=== PATIENT | female | born 1980 | race African-American/Black ===

== ENCOUNTER 2017-10-16 19:46 | Inpatient (IN) | payer MEDICARE, MEDICAID ==
[2017-10-16 20:56] LABS: #Basophils 0.1 thou/uL (0.0-0.2); #Eosinphils 0.1 thou/uL (0.0-0.7); #Lymphocytes 3.5 thou/uL (1.20-3.40); #Monocytes 1.1 thou/uL (0.11-0.59); #Neutrophils 7.5 thou/uL (1.40-6.50); %Basophils 0.9 % (0.0-1.0); %Lymphocytes 28.5 % (21.0-51.0); %Monocytes 9.1 % (0.0-10.0); %Neutrophils 60.6 % (42.0-75.0); Hemoglobin 13.9 g/dL (12.0-16.0); Mean Corpuscular HGB CONC 34.7 g/dL (32.0-36.0); Mean Corpuscular Hemoglobin 34.9 pg (27.0-31.0); Platelet Count 249 thou/uL (130-400); RBC Distribution Width 14.4 % (11.5-14.5); White Blood Cell (WBC) Count 12.3 thou/uL (4.8-10.8)
[2017-10-16 21:14] LABS: ALT (SGPT) 13 U/L (8-55); AST (SGOT) 15 U/L (5-34); Albumin 3.7 g/dL (3.5-5.0); Alkaline Phosphatase 110 U/L (40-150); Anion Gap 14 mmol/L (10-20); BUN (Urea Nitrogen) 15 mg/dL (7.0-18.7); Bilirubin, Total 0.3 mg/dL (0.2-1.2); Calc. Creatinine Clearance 0 mL/min (70-130); Calcium 9.7 mg/dL (7.8-10.44); Carbon Dioxide 23 mmol/L (22-29); Chloride 102 mmol/L (98-107); Estimated GFR-MDRD 89; Globulin 4.7 g/dL (2.4-3.5); Glucose 481 mg/dL (70-105); Protein, Total 8.4 g/dL (6.0-8.3); Sodium 135 mmol/L (136-145)
[2017-10-16 21:18] LABS: CKMB 0.2 ng/mL (0-6.6); Troponin I Less than 0.010 ng/mL (< 0.028)
[2017-10-16 21:36] LABS: Base Excess-Venous -0.5 mmol/L (0 (+/- 2.5)); Bicarbonate (HCO3v) 25.3 mmol/L (1.0-85.0); CO2 Tension (PvCO2) 44.4 mmHg (41.0-51.0); Calcium, Ionized 1.26 mmol/L (1.12-1.32); Hemoglobin - Calc 14.4 g/dL (12.0-18.0); O2 Tension (PvO2) 43.7 mmHg (35.0-45.0); Potassium 4.7 mmol/L (3.4-4.7); T. Carbon Dioxide 26.6 mmol/L (1.0-85.0); pH (Venous) 7.363 (7.35-7.45); vO2 Saturation-calc 77.3 % (94-98)
--- NOTE | 2017-10-16 21:52 | RAD ---
CHEST ONE VIEW: HISTORY: Congestion. Hyperglycemia. COMPARISON: 11/02/2016 FINDINGS: Diminished lung volumes due to poor inspiratory effort. No consolidation or masses. No pneumothorax or osseous abnormalities. Normal cardiac silhouette. IMPRESSION: No acute cardiopulmonary process. Diminished lung volumes due to poor inspiratory effort. POS: PPP
[2017-10-16 22:00] LABS: Bilirubin Negative (Negative); Blood, Urine Negative (Negative); Clarity CLEAR (Clear); Glucose, Urine (Dipstick) 500 mg/dL (Negative); Leukocyte Negative (Negative); Nitrite Negative (Negative); Protein, Urine (Dipstick) Negative (Neg-Trace)
[2017-10-16 22:02] LABS: Specific Gravity, Urine 1.044 (1.002-1.036)
[2017-10-16 23:58] LABS: Pregnancy Test - Urine (BHCG) Negative (Negative); Pregu Control Background? CLEAR/WHITE (CLR/WHITE); Pregu Control Bar Appear? YES (CONTROL BAR); Specific Gravity 1.045 (1.002-1.036)
[2017-10-17] MEDS ORDERED: Ondansetron ODT 4 MG TAB SL PRN (03:28)
[2017-10-17] MEDS ORDERED: Acetaminophen 325 MG TAB PO PRN ×2 (03:28→03:54)
[2017-10-17] MEDS ORDERED: Ondansetron HCl/PF 4 MG/2 ML Vial IVP PRN ×2 (03:28→03:54)
[2017-10-17] MEDS ORDERED: Sodium Chloride 0.9% 1,000 ML IV SCH (03:28)
[2017-10-17] MEDS ORDERED: Dextrose 50% Abboject 50 ML SYRINGE SLOW IVP PRN (03:54)
[2017-10-17] MEDS ORDERED: Dextrose 5% in Water 1,000 ML IV PRN (03:54)
[2017-10-17] MEDS ORDERED: Mag-Al 1200 mg/1200 mg/30 ML UDCUP PO PRN (03:54)
[2017-10-17] MEDS ORDERED: HumaLOG 300 UNITS/3 ML VIAL SC PRN (03:54)
[2017-10-17] MEDS ORDERED: Acetaminophen 650 MG/20.3 ML UDCUP PER TUBE PRN (04:20)
[2017-10-17] MEDS ORDERED: Mag-Al 1200 mg/1200 mg/30 ML UDCUP PER TUBE PRN (04:30)
[2017-10-17] MEDS: Sodium Chloride 0.9% 1,000 ML IV SCH ×2 (04:32→15:56)
[2017-10-17 05:42] LABS: Hemoglobin A1c 7.7 % (4.0-6.0)
[2017-10-17] MEDS: Albuterol Sulfate 1.25 MG/3 ML NEB NEB SCH ×3 (06:59→23:23)
--- NOTE | 2017-10-17 07:14 | HP ---
REASON FOR ADMISSION: New onset diabetes mellitus, type 2; agitation; acute bronchitis. HISTORY OF PRESENTING ILLNESS: Please note majority of this history is obtained by talking to, . Ifeoma Tan, patient's mom as patient is nonverbal and is bedbound. Per mom, the patient was more agitated and crying out than usual, the whole day, yesterday. She was also having congestion and this was getting worse when she was made to lay flat with gurgling noises seen on upper airway. This has been ongoing for two days. On arrival, the patient was found to have had serum sugars of 486. The patient also had to be placed on oxygen on arrival to keep her saturations above 90%. 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 She was also diagnosed with autoimmune encephalitis. The patient was hospitalized for a prolonged period of time then and was ambulating a bit after discharge from 2013, but in 2014 the patient developed another bout of seizures and became nonambulatory since then. She also has a PEG tube. She had extensive workup done at [facility], for her brain damage and seizure disorder. Hypothyroidism, C- section x1. CURRENT MEDICATIONS: Valproic acid 1000 mg p.o. 3 times daily, Topamax 200 mg twice daily, ranitidine 300 mg daily, magnesium oxide 400 mg daily, Keppra 1500 mg twice daily, lorazepam 2 mg twice daily, levothyroxine 25 mcg daily. ALLERGIES: No known drug allergies. PERSONAL HISTORY: Does not abuse alcohol or drugs. No history of smoking. The patient is essentially bedridden. FAMILY HISTORY: Both parents are healthy. Code status was discussed with mom, the patient is a FULL CODE. Father is not involved in her care. Number to reach mom is [phone]. REVIEW OF SYSTEMS: Cannot be obtained as patient is nonverbal and is obtunded. PHYSICAL EXAMINATION: GENERAL: The patient is a 36-year-old female, who is currently calm and is not in any distress. VITAL SIGNS: Blood pressure 102/70, pulse 74 per minute, respiratory rate 20 per minute, temperature 98 degrees Fahrenheit, saturating 93% on 2 liters nasal cannula. NECK: Supple, no elevated JVD. HEENT: Eyes: Extraocular muscles intact. Pupils are reacting to light. Oral cavity, mucous membranes are dry. No exudates or congestion. CARDIOVASCULAR SYSTEM: S1, S2 heard. Regular rhythm. RESPIRATORY SYSTEM: Air entry 1+ bilateral. Scattered rhonchi plus bilateral. ABDOMEN: Soft, bowel sounds heard. No tenderness, rigidity or guarding. EXTREMITIES: There is wasting of lower leg muscles. No calf tenderness, no ischemic ulcerations or gangrene. CENTRAL NERVOUS SYSTEM: The patient does not have any focal signs. I have not seen her move any of the extremities at present. PSYCHIATRIC SYSTEM: Cannot be assessed as patient is nonverbal and is obtunded at present. LABORATORY AND X-RAY FINDINGS: White count of 12, H&H 13 and 40, platelet count is 249, MCV is 100 with 60% neutrophils. Electrolytes are stable. BUN is 15, creatinine 0.8, serum glucose 481. Hemoglobin A1c 7.7. Liver enzymes within normal limits. Albumin is 3.7. TSH is 7.84. UA shows trace ketones. Urine test is negative. Chest x-ray done shows no acute cardiopulmonary abnormalities. CLINICAL IMPRESSION AND PLAN: The patient will be admitted to medical floor for new onset diabetes, upper respiratory infection, acute encephalopathy with increased agitation, likely due to above two factors. She will be gently hydrated with normal saline at 70 mL per hour. We will continue all her seizure medications including topiramate, valproic acid and Keppra. The exact doses of this will be confirmed with her pharmacy again. She will be on Augmentin twice daily for upper respiratory infection. She will be on Lantus 15 units subcutaneously twice daily and I have informed, Kale Ifeoma Tan, patient's mom about the ease of taking insulins and better control if patient were to stop eating than taking tablets given her situation at present. We will continue to closely monitor her on medical floor. THANG
[2017-10-17] MEDS ORDERED: Magnesium Oxide 400 MG TAB PO SCH (09:00)
[2017-10-17] MEDS: Amoxicillin/Potassium Clav 600 mg/5 ml Oral Suspension PER TUBE SCH ×2 (09:39→22:30)
[2017-10-17] MEDS: Enoxaparin Sodium 40 MG/0.4 ML SYRINGE SC SCH (09:39)
[2017-10-17] MEDS: Valproate Sodium 250 mg/5 ml UD Cup PER TUBE SCH ×3 (09:40→22:35)
[2017-10-17] MEDS: Magnesium Oxide 400 MG TAB PO SCH (09:40)
[2017-10-17] MEDS: Insulin Glargine 15 UNITS in Pre-Filled Syringe 1 EACH SC SCH ×2 (09:57→21:02)
[2017-10-17] MEDS: Topiramate 100 MG TAB PER TUBE SCH ×2 (10:20→22:34)
[2017-10-17] MEDS: Famotidine 20 MG TAB PER TUBE SCH ×2 (10:20→22:34)
--- NOTE | 2017-10-17 11:00 | PDOC.EVN ---
Event Note - Event Note Event Note: Patient seen and examined following admission for Acute bronchitis, agitation and new diagnosis of T2DM. Resting calmly now and saturating well. Will start metformin 500 mg BID and monitor blood glucose. Continue SSI and long acting insulin. She might not need insulin on discharge, depending on response.
[2017-10-17 12:15] VITALS: BMI 29.7
[2017-10-17] MEDS: HumaLOG 300 UNITS/3 ML VIAL SC PRN ×2 (12:50→17:44)
[2017-10-17] MEDS: levETIRAcetam 500 mg/5 ml Oral Solution PER TUBE SCH (12:50)
[2017-10-17] MEDS: metFORMIN 500 MG TAB PO SCH (15:58)
[2017-10-17] MEDS ORDERED: VANCOMYCIN IVPB PRN (22:25)
[2017-10-17] MEDS ORDERED: Piperacillin/Tazobactam 3.375 GM in Sodium Chloride 0.9% 100 ML IVPB SCH (22:30)
[2017-10-18] MEDS: Vancomycin HCl 1.25 GM in Sodium Chloride 0.9% 250 ML 250 ML IVPB SCH ×2 (00:31→13:23)
[2017-10-18] MEDS: levETIRAcetam 500 mg/5 ml Oral Solution PER TUBE SCH ×2 (00:34→13:22)
[2017-10-18 05:33] LABS: #Eosinphils 0.1 thou/uL (0.0-0.7); #Lymphocytes 3.1 thou/uL (1.20-3.40); #Monocytes 1.1 thou/uL (0.11-0.59); #Neutrophils 5.7 thou/uL (1.40-6.50); %Basophils 0.4 % (0.0-1.0); %Eosinophils 0.9 % (0.0-10.0); %Monocytes 10.9 % (0.0-10.0); %Neutrophils 56.8 % (42.0-75.0); Hemoglobin 11.1 g/dL (12.0-16.0); Mean Corpuscular HGB CONC 34.5 g/dL (32.0-36.0); Mean Corpuscular Hemoglobin 34.7 pg (27.0-31.0); Platelet Count 165 thou/uL (130-400); RBC Distribution Width 14.3 % (11.5-14.5); Red Blood Cell (RBC) Count 3.21 mill/uL (4.20-5.40); White Blood Cell (WBC) Count 10.1 thou/uL (4.8-10.8)
[2017-10-18 05:35] LABS: Anion Gap 11 mmol/L (10-20); BUN (Urea Nitrogen) 9 mg/dL (7.0-18.7); Calc. Creatinine Clearance 171 mL/min (70-130); Calcium 8.7 mg/dL (7.8-10.44); Carbon Dioxide 23 mmol/L (22-29); Chloride 112 mmol/L (98-107); Estimated GFR-MDRD Greater than 90; Glucose 191 mg/dL (70-105); Potassium 3.7 mmol/L (3.5-5.1); Sodium 142 mmol/L (136-145)
[2017-10-18] MEDS: Piperacillin/Tazobactam 3.375 GM in Sodium Chloride 0.9% 100 ML IVPB SCH ×3 (06:18→16:06)
[2017-10-18] MEDS: Albuterol Sulfate 1.25 MG/3 ML NEB NEB SCH ×3 (07:04→23:21)
[2017-10-18] MEDS ORDERED: LORAZEPAM 1 MG PER TUBE PRN (07:29)
[2017-10-18] MEDS ORDERED: Lorazepam 1 MG TAB PER TUBE PRN (07:37)
[2017-10-18] MEDS ORDERED: Vancomycin HCl 1 GM in Premix Bag 1 BAG IVPB SCH (09:00)
[2017-10-18] MEDS: Sodium Chloride 0.9% 1,000 ML IV SCH ×2 (09:19→12:14)
[2017-10-18] MEDS: metFORMIN 500 MG TAB PO SCH ×2 (09:19→16:06)
[2017-10-18] MEDS: Magnesium Oxide 400 MG TAB PO SCH (09:21)
[2017-10-18] MEDS: Topiramate 100 MG TAB PER TUBE SCH ×2 (09:21→21:41)
[2017-10-18] MEDS: Valproate Sodium 250 mg/5 ml UD Cup PER TUBE SCH ×3 (09:21→21:40)
[2017-10-18] MEDS: Famotidine 20 MG TAB PER TUBE SCH ×2 (09:21→21:41)
[2017-10-18] MEDS: Enoxaparin Sodium 40 MG/0.4 ML SYRINGE SC SCH (09:21)
--- NOTE | 2017-10-18 10:16 | PDOC.PN ---
- Subjective Encounter Start Date: 10/18/17 Encounter Start Time: 10:21 Patient seen and examined following admission for new diagnosis of T2DM and gram + cocci bacteremia. She is afebrile and hemodynamically stable. No acute events overnight. - Objective Resuscitation Status: Resuscitation Status FULL:Full Resuscitation MAR Reviewed: Yes Vital Signs & Weight: Vital Signs (12 hours) Temp Pulse Resp BP BP Pulse Ox 10/18/17 08:00 98.9 F 95 14 110/76 95 10/18/17 07:04 90 14 10/18/17 00:00 97.6 F 99 20 90/65 94 L 10/17/17 23:23 81 18 97 Weight Admit Weight 189 lb 9 oz Weight 189 lb 9 oz I&O: 10/17/17 10/18/17 10/19/17 06:59 06:59 06:59 Intake Total 450 1580 Balance 450 1580 Result Diagrams: 10/18/17 05:04 10/18/17 05:03 Additional Labs: Accuchecks 10/18/17 10/17/17 10/17/17 04:21 20:51 16:33 POC Glucose 204 H 161 H 241 H 10/17/17 12:19 POC Glucose 253 H Phys Exam - Physical Examination Constitutional: NAD HEENT: PERRLA, moist MMs, sclera anicteric Neck: supple, full ROM Respiratory: no wheezing, no rales, no rhonchi, clear to auscultation bilateral Cardiovascular: RRR, no significant murmur, no rub Gastrointestinal: soft, non-tender, no distention, positive bowel sounds Musculoskeletal: no edema, pulses present Unable to cooperate w exam Skin: no rash, normal turgor Dx/Plan (1) New onset type 2 diabetes mellitus Code(s): E11.9 - TYPE 2 DIABETES MELLITUS WITHOUT COMPLICATIONS Status: Acute Comment: Improving glycemic control. Started on metformin BID. A1c 7.7 (2) Gram-positive cocci bacteremia Code(s): R78.81 - BACTEREMIA Status: Acute (3) Seizure Status: Acute Qualifiers: Convulsion type: unspecified Qualified Code(s): R56.9 - Unspecified convulsions Comment: Stable. Seizure free. - Plan cont current plan of care, continue antibiotics, respiratory therapy, DVT proph w/lovenox Continue antibiotics. f/u sensitivities and final culture report Continue metformin. Patient will likely not require insulin on discharge. Review of Systems - Medications/Allergies Allergies/Adverse Reactions: Allergies Allergy/AdvReac Type Severity Reaction Status Date / Time lacosamide [From Vimpat] AdvReac Severe Verified 10/17/17 03:35 Medications: Current Medications Acetaminophen (Tylenol Elixir) 650 mg PER TUBE Q4H PRN PRN Reason: Headache/Fever or Pain Al Hydroxide/Mg Hydroxide (Maalox) 30 ml PER TUBE Q6H PRN PRN Reason: Heartburn or Indigestion Albuterol Sulfate (Albuterol Sulfate) 1.25 mg NEB [id number] [facility] Last Admin: 10/18/17 07:04 Dose: 1.25 mg Dextrose/Water (Dextrose 50%) 25 gm SLOW IVP PRN PRN PRN Reason: Hypoglycemia Enoxaparin Sodium (Lovenox) 40 mg SC 0900 [facility] Last Admin: 10/18/17 09:21 Dose: 40 mg Famotidine (Pepcid) 20 mg PER TUBE BID [facility] Last Admin: 10/18/17 09:21 Dose: 20 mg Glucagon (Glucagon) 1 mg IM PRN PRN PRN Reason: Hypoglycemia Dextrose/Water (D5w) 1,000 mls @ 0 mls/hr IV .Q0M PRN; As Directed PRN Reason: Hypoglycemia Sodium Chloride (Normal Saline 0.9%) 1,000 mls @ 70 mls/hr IV .[id number] [facility] Last Admin: 10/18/17 09:19 Dose: Not Given Piperacillin Sod/Tazobactam (Sod 3.375 gm/ Sodium Chloride) 100 mls @ 200 mls/ hr IVPB 0500,1100,1700,2300 [facility] Last Admin: 10/18/17 06:18 Dose: 100 mls Vancomycin HCl 1.25 gm/ Sodium (Chloride) 250 mls @ 166.667 mls/hr IVPB 1100, 2300 [facility] Last Admin: 10/18/17 00:31 Dose: 250 mls Insulin Human Lispro (Humalog) 0 units SC .MODERATE SLIDING SC PRN PRN Reason: Moderate Correctional Scale Last Admin: 10/17/17 17:44 Dose: 4 unit Insulin Human Lispro (Humalog) 0 units SC .BEDTIME SLIDING SC PRN PRN Reason: Bedtime Correctional Scale Levetiracetam (Keppra Oral Solution) 1,500 mg PER TUBE 1100,2300 [facility] Last Admin: 10/18/17 00:34 Dose: 1,500 mg Lorazepam (Ativan) 1 mg PER TUBE Q4H PRN PRN Reason: AGITATION Magnesium Oxide (Magnesium Oxide) 400 mg PO DAILY [facility] Last Admin: 10/18/17 09:21 Dose: 400 mg Metformin HCl (Glucophage) 500 mg PO BID-[facility] Last Admin: 10/18/17 09:19 Dose: 500 mg Miscellaneous Medication (Pharmacy To Dose) 1 each IVPB PRN PRN PRN Reason: SEPSIS Ondansetron HCl (Zofran) 4 mg IVP Q6H PRN PRN Reason: Nausea/Vomiting Sodium Chloride (Flush - Normal Saline) 10 ml IVF Q12HR [facility] Last Admin: 10/18/17 09:21 Dose: Not Given Sodium Chloride (Flush - Normal Saline) 10 ml IVF PRN PRN PRN Reason: Saline Flush Topiramate (Topamax) 200 mg PER TUBE BID [facility] Last Admin: 10/18/17 09:21 Dose: 200 mg Valproic Acid (Depakene Liquid) 1,000 mg PER TUBE TID [facility] Last Admin: 10/18/17 09:21 Dose: 1,000 mg
[2017-10-19] MEDS: Piperacillin/Tazobactam 3.375 GM in Sodium Chloride 0.9% 100 ML IVPB SCH ×3 (00:36→10:33)
[2017-10-19] MEDS: levETIRAcetam 500 mg/5 ml Oral Solution PER TUBE SCH ×2 (00:36→10:33)
[2017-10-19] MEDS: Vancomycin HCl 1.25 GM in Sodium Chloride 0.9% 250 ML 250 ML IVPB SCH ×2 (01:13→10:33)
[2017-10-19] MEDS: Enoxaparin Sodium 40 MG/0.4 ML SYRINGE SC SCH (07:52)
[2017-10-19] MEDS: Valproate Sodium 250 mg/5 ml UD Cup PER TUBE SCH ×2 (07:52→15:02)
[2017-10-19] MEDS: Magnesium Oxide 400 MG TAB PO SCH (07:52)
[2017-10-19] MEDS: metFORMIN 500 MG TAB PO SCH ×2 (07:52→16:58)
[2017-10-19] MEDS: Topiramate 100 MG TAB PER TUBE SCH (07:59)
[2017-10-19 08:29] VITALS: BP 110/75
[2017-10-19] MEDS: Albuterol Sulfate 1.25 MG/3 ML NEB NEB SCH ×2 (08:43→14:48)
[2017-10-19] MEDS: Famotidine 20 MG TAB PER TUBE SCH (10:03)
[2017-10-19 10:24] VITALS: TEMP 97.5
[2017-10-19 10:37] LABS: Vancomycin, Trough 15.3 ug/mL
[2017-10-19 13:19] LABS: Hemoglobin A1c 7.7 % (4.0-6.0)
--- NOTE | 2017-10-19 21:30 | DIS ---
DATE OF ADMISSION: 10/17/2017 DATE OF DISCHARGE: 10/19/2017 DISCHARGE DIAGNOSES: 1. New onset type 2 diabetes. 2. Gram-positive cocci bacteremia. 3. Seizures. HISTORY OF PRESENT ILLNESS: The patient is a very pleasant 36-year-old female who initially was brou ght in by mother with complaints of agitation and possible acute bronchitis. The patient is bedbound and is minimally responsive at baseline per family. The patient was found to have a serum blood sug ar of 486. She was also initially put on broad spectrum antibiotics. The patient was initially put on metformin and also sliding scale insulin. Patient's blood culture appeared to have one culture th at was positive for gram indicated coagulase negative staph. There was only one bottle out of the tw o bottles and most likely it was a contaminant. Patient will be discharged home. Will continue her home medications in addition to the metformin. Also, the patient will be placed on Augmentin for a t otal of 5 days. DISCHARGE MEDICATIONS: As following: Metformin 500 mg 1 p.o. b.i.d., lorazepam 1 mg per tube q.4 ho urs p.r.n., Keppra 1000 mg twice a day, Topamax 200 mg b.i.d., ranitidine 300 mg daily, levothyroxine 25 mcg daily, valproic acid 1000 mg p.o. t.i.d., magnesium 400 mg p.o. daily and Augmentin suspensio n for 5 days. The patient will follow up with PCP in 1 week. PHYSICAL EXAMINATION: VITAL SIGNS: Temperature of 97.8, 88, 14, 98% on room air, blood pressure 110/75. GENERAL: She is in bed, opens her eyes at times. CARDIOVASCULAR: S1, S2 present. No murmurs, rubs or gallops. LUNGS: Clear to auscultation, rhonchi or wheezes noted. ABDOMEN: Soft, nontender. Bowel sounds are present x2. EXTREMITIES: Lower extremity, no edema. The patient does have a PEG tube in place. Patient again will follow up with PCP for her newly diagnosed diabetes. Her hemoglobin A1c was 7.7. I do not think she requires any insulin at this time. Also, the patient's tube feedings were change d to Glucerna which would benefit her.
== END 2017-10-19 20:22 | disposition home or self-care (01) | DRG 637 ==
LOC: ERS 19:46 → T4-B 10-17 01:42
PROVIDERS: ADMIT Internal Medicine; ATTEND Internal Medicine
DX: E11.9 Type 2 diabetes mellitus without complications (principal); G93.40 Encephalopathy, unspecified; R78.81 Bacteremia; Z93.1 Gastrostomy status; Z79.84 Long term (current) use of oral hypoglycemic drugs; R42 Dizziness and giddiness; E03.9 Hypothyroidism, unspecified; R56.9 Unspecified convulsions
CPT/HCPCS: 36415; 36416; 51701; 71045; 80048; 80053; 80202; 81003; 81025; 82010; 82330; 82553; 82803; 83036; 84443; 84484; 85025; 87040; 87081; 87086; 87149; 87430; 93005; 94640; 96360; 96361; A4216; J1650; J2543; J3370; J7050